=== PATIENT | male | born 1985 | race Caucasian/White ===

== ENCOUNTER 2020-04-21 14:35 | Emergency (ER) | payer OTHER | END 2020-04-21 16:55 | disposition home or self-care (01) | LOC: ER1 14:35 | DX: S20.212A Contusion of left front wall of thorax, initial encounter (principal); S30.1XXA Contusion of abdominal wall, initial encounter; V44.5XXA Car driver injured in collision with heavy transport vehicle or bus in traffic accident, initial encounter; Y92.410 Unspecified street and highway as the place of occurrence of the external cause | CPT/HCPCS: 99283 ==

== ENCOUNTER 2020-05-07 20:58 | Emergency (ER) | payer OTHER ==
[2020-05-07] MEDS ORDERED: AMOXICILLIN500 MG PO (21:45)
[2020-05-07] MEDS ORDERED: IBU400 MG PO (21:45)
== END 2020-05-07 22:10 | disposition home or self-care (01) ==
LOC: ER1 20:58
DX: K02.9 Dental caries, unspecified (principal); F17.200 Nicotine dependence, unspecified, uncomplicated
CPT/HCPCS: 99282